=== PATIENT | female | born 1990 | race Two or more races ===

== ENCOUNTER 2021-03-28 19:49 | Emergency (ER) | payer OTHER ==
[~2021-03-28] VITALS: Ht 165.1 cm; Wt 59.0 kg
[2021-03-28 23:29] VITALS: BP 137/91
[2021-03-29] MEDS ORDERED: ACETAMINOPHEN 325 MG TAB PO ONE (00:15)
== END 2021-03-29 05:28 | disposition home or self-care (01) ==
LOC: EDBD 19:49 → ER 19:57
DX: S40.012A Contusion of left shoulder, initial encounter (principal); R51.9 Headache, unspecified; F41.9 Anxiety disorder, unspecified; V49.49XA Driver injured in collision with other motor vehicles in traffic accident, initial encounter; Y93.89 Activity, other specified; Y92.488 Other paved roadways as the place of occurrence of the external cause; Y99.8 Other external cause status
CPT/HCPCS: 73030; 81025